=== PATIENT | male | born 1960 | race Caucasian/White ===

== ENCOUNTER 2020-11-13 16:46 | Outpatient (CLI) | payer OTHER, SELFPAY ==
--- NOTE | ~2020-11-13 | XR_ITS ---
EXAMINATION: XR foot LT min 3V DATE: 11/13/2020 17:14 INDICATION: Left foot pain. TECHNIQUE: 4 views of left foot were obtained. COMPARISON: None. FINDINGS: There is moderate hallux valgus. No fracture. There is mild osteoarthritis of first metatar sophalangeal joint and some of the interphalangeal joints and midfoot joints. There are enthesophytes at the posterior and plantar aspects of calcaneal tuberosity. IMPRESSION: 1. Moderate hallux valgus. 2. Polyarticular osteoarthritis. Reviewed, dictated and finalized at location A.
== END 2020-11-13 16:47 | disposition home or self-care (01) ==
PROVIDERS: PCP Internal Medicine; Visit Provider Nurse Practitioner Family
DX: M79.672 Pain in left foot (principal)
CPT/HCPCS: 73630

== ENCOUNTER 2020-12-13 14:50 | Outpatient (CLI) | payer OTHER, SELFPAY ==
[2020-12-13 15:22] LABS: SARS-CoV-2 Ag Negative (Negative)
[2020-12-13 15:52] LABS: SARS-CoV-2 RNA PCR Negative (Negative)
== END 2020-12-13 14:51 | disposition home or self-care (01) ==
LOC: CHSLAB 14:52
PROVIDERS: PCP Internal Medicine; Visit Provider Internal Medicine
DX: J06.9 Acute upper respiratory infection, unspecified (principal); Z20.822 Contact with and (suspected) exposure to COVID-19
CPT/HCPCS: 87426; C9803; U0003; U0005

== ENCOUNTER 2021-03-18 07:53 | Outpatient (CLI) | payer OTHER, SELFPAY ==
--- NOTE | ~2021-03-18 | XR_ITS ---
EXAMINATION: XR foot LT min 3V DATE: 03/18/2021 08:25 INDICATION: Left foot and second toe pain TECHNIQUE: Dorsoplantar, lateral, and 2 oblique views of the left foot were obtained. COMPARISON: 11/13/2020 FINDINGS: Moderate hallux valgus is again noted and unchanged. No fracture is identified. There is mi ld osteoarthritis at the first metatarsophalangeal joint. Mild osteoarthritis is also noted in the mi dfoot. There are posterior and plantar calcaneal enthesophytes. IMPRESSION: 1. No acute osseous abnormality. Reviewed, dictated and finalized at location A.
== END 2021-03-18 07:54 | disposition home or self-care (01) ==
LOC: CHSLAB 07:54
PROVIDERS: PCP Internal Medicine; Visit Provider Orthopaedic Surgery
DX: M79.672 Pain in left foot (principal)
CPT/HCPCS: 73630

== ENCOUNTER 2021-05-20 07:47 | Outpatient (CLI) | payer OTHER, SELFPAY ==
--- NOTE | 2021-05-20 08:00 | ECG_ITS ---
Measurements Intervals [place] Rate: 65 P: 62 NE: 164 QRS: 84 QRSD: 101 T: 38 QT: 385 QTc: 401 Interpretive Statements SINUS RHYTHM BASELINE ARTIFACT- I, II, AVR, AVL, AVF NORMAL ECG Electronically Signed On 05-20-2021 16:47:18 CLOTH MEASURER by Chase Davis D.O.
== END 2021-05-20 07:48 | disposition home or self-care (01) ==
LOC: ANHSURGERY 07:49
PROVIDERS: PCP Internal Medicine; Visit Provider Orthopaedic Surgery
DX: E78.5 Hyperlipidemia, unspecified (principal); Z01.818 Encounter for other preprocedural examination
CPT/HCPCS: 93005

== ENCOUNTER 2021-05-23 00:41 | Day surgery (SDC) | payer OTHER, SELFPAY ==
[2021-05-14 14:30] VITALS: BMI 32.3
--- NOTE | 2021-05-14 14:37 | PC.NURSE ---
Report to the Outpatient Waiting Room, entrance under the green pavilion located off [facility], at time __0700_ on date 05-23-21. OR Time: _0900__. - You and your visitor will be asked a series of questions to screen for COVID 19 for your protection. - A mask is required within the hospital. - Only one visitor is allowed at this time. Patient visitors will be guided where to wait when not with patient. Preoperative COVID Testing Requirements: No COVID Test needed if: (proof is required; if not received patient will have Rapid Test prior to entry) - Patient has received COVID Vaccine at least 14 days prior to procedure date or - Patient has positive COVID test result within last 90 days of surgery date. COVID Test needed if above criteria is not met If not COVID vaccinated a COVID test must be conducted within 72 hours of surgery and patient is asked to isolate self from time of testing until procedure. You will go to the [facility] for your COVID testing. The [facility] site is located at the corner of [address] [facility]. You will only be called if COVID results are positive and your surgeon may reschedule your elective surgery date. Patients may have clear liquids (water, carbonated beverages, clear teas, apple juice) until 3 hours prior to surgery with a maximum of 20 ounces. - No food from midnight until time of surgery - Infants may have breast milk until 4 hours before surgery, formula 6 hours prior to surgery. - Children will be allowed to drink immediately following surgery. If applicable, please bring a bottle or sippy cup to assist with drinking. Juice, water, soda, and popsicles are readily available. For infants on formula, please bring formula the day of surgery. Pacifiers are allowed. Take the following medications with a SIP of water the morning of surgery: Medications to discontinue per physician Date to take last dose Please no make-up, nail gambian, hairspray, perfume, deodorant, or body powder the day of surgery. No jewelry (including any body piercings) or valuables the day of surgery, leave them at home. Please take a shower or bath the night before, or the morning of, surgery with an antibacterial soap. Wear comfortable, loose fitting clothing. Children are encouraged to wear pajamas. - Jewelry must be removed prior to entering the operating room. Rings and piercings that are not removed may be cut off. - The hospital will not accept responsibility for valuables. - Please leave all valuables, including medications, at home the day of surgery. If you are going home after surgery, a licensed motor bus driver must drive you home. - NO public transportation without another adult. - We recommend that an adult stay with you for 24 hours following discharge. - We also recommend that you do not drive, make important decision, drink alcoholic beverages, or take any drugs that were not prescribed by your health care provider for at least 24 hours after your discharge time. For Pediatric surgeries, we recommend two adults accompany the child home (only one inside the building at this time). Follow any additional instructions given to you from your surgeon. Telephone instructions given to ___Patient and asked if any additional questions and then verbalized understanding. Patient advised to call surgeon office or pre surgery nurse liaison [phone] if any additional questions.
--- NOTE | 2021-05-14 15:20 | PM.IMHP ---
H&P: HPI History of Present Illness Date/Time: 05/14/21 15:20 Chief Complaint: Left foot pain and 2nd toe deformity Narrative: Pt states that he started to get pain on the MTP joints of his toes about 1 year ago when he was walking. He states that approx 4 months ago his 2nd toe started to flex into a contracture and cause achiness. He stated that he can extend the toe back out with his hand, but it causes extreme pain. He has achiness when walking and feels like the contracture is getting worse. He went to his PCP on 12/13/20 and was prescribed a prednisone dose pack. Pt stated it did not help with pain or contracture. XR on 11/13/20 showed moderate hallux valgus/polyarticular arthritis. Pt states that he uses ice for pain with very little relief. Onset: 03/18/20 Location: MTP joints 1-5, 2nd toe Duration: 1 years for MTP pain, 4 months for 2nd toe pain Review of Systems Constitutional: Constitutional: Denies fever(s) Eyes: Eyes: Denies blurry vision ENT: Reports Normal hearing present Cardiovascular: Cardiovascular: Denies chest pain and Denies dyspnea Respiratory: Respiratory: Denies dyspnea and Denies wheezing Gastrointestinal: Gastrointestinal: Denies abdominal pain Genitourinary: Genitourinary: Denies urinary urgency Musculoskeletal: Musculoskeletal: Reports as per HPI and Denies numbness Integumentary/Breasts: Skin/Breast: Denies changing lesions and Denies sores Neurologic: Reports Normal hearing present, Denies behavioral changes, Denies confusion, Denies numbness and Denies convulsions Psychiatric: Psychiatric: Denies behavioral changes, Denies confusion and Denies hallucinations Endocrine: Endocrine: Denies heat intolerance Hematologic/Lymphatic: Hematologic/Lymphatic: Denies easy bleeding Allergic/Immunologic: Allergic/Immunologic: Denies wheezing PMFSH Past Medical History Medical History Crossover toe deformity of left foot Social History Social History Smoking packs per day: 1 Smoking cigarettes per day: 20.0 Years smoked: 25 Smoking pack-years: 25.00 Smoking status: Former smoker Tobacco type: cigarettes Smoking end date: 05/14/02 Alcohol intake: current Spiritual care concerns: No Meds Home Medications and Allergies Home Medications Medication Instructions Recorded Confirmed Type rosuvastatin 5 mg PO DAILY 05/14/21 05/14/21 History Allergies Allergy/AdvReac Type Severity Reaction Status Date / Time No Known Allergies Allergy Verified 05/14/21 14:29 Exam Const: General: No confusion Orientation/consciousness: No confusion HENMT: Head: normal to inspection, normocephalic and atraumatic Eyes: Conjunctivae: conjunctivae normal Sclera: sclerae normal Neck: Neck: supple and nontender Chest: Chest palpation & inspection: normal inspection of the chest Resp: Effort & Inspection: normal respiratory effort and no audible wheezes Cardio: Rate: regular rate Rhythm: regular rhythm : General: Yes deferred Skin: General skin exam: no rashes or lesions noted Neuro: General: No confusion Extrem: General: capillary refill normal Right upper extremity: normal to inspection Left upper extremity: normal to inspection Right lower extremity: normal to inspection, hip/thigh Details: normal to inspection and foot Details: vascular exam Details: dorsalis pedis pulse present and normal capillary refill and motor-sensory exam Details: light-touch normal; no tenderness Left lower extremity: hip/thigh Details: normal to inspection, knee Details: abnormal ROM ( range of motion deferred secondary to fracture), ankle (no calf tenderness) Details: normal to inspection, normal ROM, ecchymosis, crepitus, achilles tendon exam abnormal and other ( good capillary refill in toes, 2+ DP pulse, light touch sensation intact); no tenderness ( lateral malleolus, anterior
[2021-05-23] VITALS (10 sets, daily range): BP systolic 104–123; BP diastolic 56–72; PULSE 59–79; RESP 15–17; TEMP 36.2–37.6; O2SAT 93–100
--- NOTE | ~2021-05-23 | XR_ITS ---
EXAMINATION: XR surgery orthopedic DATE: 05/23/2021 10:55 INDICATION: Left crossover toe repair and osteotomy TECHNIQUE: 3 fluoroscopic images of the left forefoot were obtained during procedure performed by Dr. Burnham. Radiologist was not present for the imaging or procedure. The amount of fluoroscopy time us ed during this procedure was 0.2 minutes. COMPARISON: 03/18/2021 FINDINGS: Osteotomy at the head of the second proximal phalanx and second proximal interphalangeal arthrodesis. There is a fixation device spanning the joint space which has been placed over an axially directed w alicia which extends from the tuft of the distal phalanx across the middle phalanx and into the diaphysi s of the proximal phalanx. Tiny drill hole at the base of the proximal phalanx. Shortening osteotomy with screw fixation at the neck of the second metatarsal. No fracture. 20 degrees hallux valgus. Mild osteoarthritis at the first metatarsophalangeal joint. IMPRESSION: 1. Postoperative change at the second ray including shortening osteotomy at the neck of the second me tatarsal and internally fixed second proximal interphalangeal joint arthrodesis as detailed above. Se e procedure note for further detail. Reviewed, dictated and finalized at location A. EDIENT HANDLER IMPRESSION: 1. Postoperative change at the second ray including shortening osteotomy at the neck of the second metatarsal and internally fixed second proximal interphalan geal joint arthrodesis as detailed above. See procedure note for further detail .
--- NOTE | 2021-05-23 06:10 | WPDHPUPDATE1 ---
History and Physical Update Update Date/Time: 05/23/21 06:10 History and Physical has been reviewed, including an updated exam of the patient. There are NO changes in the patient's condition. Risks, benefits, and alternatives have been discussed and questions answered. Patient agrees to proceed with procedure.
[2021-05-23] MEDS: ACETAMINOPHEN 500 MG TABLET 1000 MG PO (08:00)
--- NOTE | 2021-05-23 08:10 | P.PNAN_ITS ---
Anes - Initial Pre Proc Eval Procedure: Operation Date: 05/23/21 09:00 Proposed Procedures p Left Second Crossover Toe Repair and Second Metatarsal Osteotomy - Jim Burnham MD Date/Time: 05/23/21 08:10 Surgeon: Jim Burnham MD Pre Op Diagnosis: left second crossover toe Patient Data Age: 60 Gender: M Height: 1.78 m Weight: 102.3 kg Allergies Allergy/AdvReac Type Severity Reaction Status Date / Time No Known Allergies Allergy Verified 05/23/21 07:43 Home Medications Medication Instructions Recorded Confirmed Type rosuvastatin 5 mg PO DAILY 05/14/21 05/23/21 History Patient hx anesthesia problems: none Family hx anesthesia problems: none Results Review: All pre-operative results and documents have been reviewed as part of the pre-operative evaluation. [facility] Past Medical History Medical History (Updated 05/23/21 @ 08:10 by Abad Mckenna MD) Crossover toe deformity of left foot Hyperlipidemia Obesity LILI (obstructive sleep apnea) Surgical History Surgical History (Updated 05/23/21 @ 08:10 by Abad Mckenna MD) H/O colonoscopy Social History Social History Smoking packs per day: 1 Smoking cigarettes per day: 20.0 Years smoked: 25 Smoking pack-years: 25.00 Smoking status: Former smoker Tobacco type: cigarettes Smoking end date: 05/14/02 Alcohol intake: current Living arrangements: with family Spiritual care concerns: No Anes - Eval Final PreProcedure Day of Procedure 05/23/21 08:10 Patient weight: obese Heart: regular rate and rhythm Lungs: clear to auscultation Airway: Mallampati scale class II Neurological: alert and oriented Last oral intake: >/= 8 hours ASA classification: III Emergent: no Anesthetic plan: proceed Anesthesia type and monitoring: general LMA and standard monitoring Results Review: All pre-operative results and documents have been reviewed as part of the pre-operative evaluation. Informed Consent: The patient's anesthetic plan and its attendant risks and benefits were discussed with the patient/family/POA. Questions were solicited and answers provided to the satisfaction of the patient/family/POA.
[2021-05-23] MEDS: LACTATED RINGERS 1,000 ML 30 ML IV CONT ×2 (08:50→11:10)
[2021-05-23] MEDS: KETOROLAC 15 MG/ML VIAL (*BKC) IV PUSH (08:52)
[2021-05-23] MEDS: ceFAZolin 2 GM/D5W 50 ML 2 GM/50 ML BAG IVPB (08:56)
[2021-05-23] MEDS: BUPIVACAINE HCL 0.5% PF 30 ML VIAL 20 ML INFILTRATE (09:08)
--- NOTE | 2021-05-23 10:22 | SUR.OPER ---
IMPLANT SYSTEM CPR MINI SCORPION DX AND MICRO SUTURE LASSO, LOT [id number], EXP 2025-02-21 LEFT FOOT 2ND TOE
--- NOTE | 2021-05-23 10:33 | SUR.OPER ---
LocalEats[employer]ITE PIP IMPLANT BENT 16MM WITH INSTRUMENTATION, LOT [id number], EXP 2024-03-24. LEFT FOOT 2ND TOE.
--- NOTE | 2021-05-23 11:33 | W.PM.PROC2 ---
Procedure Note - Detailed Date of Procedure 05/23/21 Pre-op Diagnosis left second crossover toe, hammertoe, metatarsalgia Post-op Diagnosis same Procedure Performed Left 2nd metatarsal osteotomy with shortening, crossover toe soft tissue reconstruction, hammertoe repair with proximal interphalangeal arthrodesis Surgeon Jim Burnham MD Flow Specialist 1st executive chef assistant Anesthesia general Indications 60-year-old gentleman with left crossover toe deformity, 2nd hammertoe deformity and metatarsalgia due to excessively long 2nd metatarsal. Failed non operative treatment with stretching, shoe inserts and padding, accommodative shoes and medication. Presents now for operative treatment. Description of Procedure After informed consent was given the operative extremity was marked in the preoperative holding area. Patient received intravenous antibiotics. he was brought to the operating room where he underwent a general anesthetic by the anesthesia team. Time-out performed confirming the patient, site of the surgery, operative plan. The left lower extremity was then prepped and draped in usual sterile surgical fashion using ChloraPrep skin solution. Foot and ankle exsanguinated and a calf tourniquet inflated to 225 mmHg. Dorsal approach utilized and longitudinal incision made with 15 blade knife centered over the 2nd metatarsophalangeal joint. Hemostasis controlled with electrocautery. Extensor tendon retracted laterally. Dorsal capsulotomy performed. Synovitis and joint fluid noted in the joint. This was sharply removed and suctioned out. Collaterals released off of the proximal phalanx. Joint inspected and a plantar plate rupture noted. Proximal plantar plate released with the McGlamry elevator. Plantar condyle removed with a rongeur. Sagittal saw used to make transverse osteotomy in the metatarsal head. This allowed the head to shorten to correct the excessive length of the metatarsal. Positioning verified with image intensification. Fixation achieved with a 2.0 mm twist off screw from Arthrex set. Plantar plate reconstruction then performed. Suture passed in horizontal mattress fashion through the plantar plate. Drill holes placed in the proximal phalanx and suture brought up through the drill holes. With the toe in corrected position sutures tied over the dorsum of the proximal phalanx. Image intensification confirmed final alignment of the toe at the metatarsophalangeal joint. Visualization clinically showed good alignment of the metatarsophalangeal joint. Hammertoe then addressed. Dorsal longitudinal incision made with a 15 blade knife over the proximal interphalangeal joint of the 2nd toe. Collateral ligaments released after a dorsal capsulotomy. Distal end of the proximal phalanx removed with a bone cutter and the proximal end of the middle phalanx removed with a rongeur. Reaming for the implant was then performed. The implant was then placed into the middle phalanx and reduced to the proximal phalanx and impacted. Image intensification confirmed alignment and placement of the hardware. Wounds thoroughly irrigated with antibiotic solution. Capsules repaired with 3 0 Monocryl interrupted suture. Skin repaired with 4 0 nylon interrupted suture. Sterile dressing applied. Tourniquet released. Good capillary refill noted in the toe. Patient awoke from anesthesia, extubated and taken to the recovery room in stable condition. All sponge, needle, instrument counts correct at the end of the case. Implants Arthrex 16 mm hammertoe implant, 13 mm x 2.4 mm twist off screw, 0.054 in K-wire x1 Estimated Blood Loss 2 Tourniquet Time 115 Drains No Packing No Pathology none sent Complications None Condition stable Disposition PACU
== END 2021-05-23 13:10 | disposition home or self-care (01) ==
PROVIDERS: PCP Internal Medicine; Visit Provider Orthopaedic Surgery
PROC: (CPT 28313; principal; 2021-05-23 09:00)
DX: M20.42 Other hammer toe(s) (acquired), left foot (principal); M77.42 Metatarsalgia, left foot; M20.5X2 Other deformities of toe(s) (acquired), left foot; E78.5 Hyperlipidemia, unspecified; G47.33 Obstructive sleep apnea (adult) (pediatric); Z87.891 Personal history of nicotine dependence; E66.9 Obesity, unspecified; Z68.32 Body mass index [BMI] 32.0-32.9, adult
CPT/HCPCS: 28313; 26860; 28308; A9270; C1713; J0690; J1885; J2250; J2405; J2704; J3010; J7120

== ENCOUNTER 2021-05-27 08:37 | Outpatient (CLI) | payer OTHER, SELFPAY ==
--- NOTE | ~2021-05-27 | XR_ITS ---
EXAMINATION: XR foot LT min 3V DATE: 05/27/2021 08:54 INDICATION: Left foot pain TECHNIQUE: Dorsoplantar, two oblique and lateral views of the left foot were obtained. COMPARISON: 03/18/2021 FINDINGS: Postoperative change of a shortening osteotomy with screw fixation at the head of the second metatars al. Osteotomy at the head of the second proximal phalanx and percutaneous fixation wires extending fr om the tuft of the distal phalanx across the middle phalanx into the distal diaphysis of the proximal phalanx. There is an additional fixation device 4 likely arthrodesis at the proximal interphalangeal joint which has been placed coaxially over the fixation wire. Small lucent likely drill hole at the base of the second proximal phalanx. Alignment is essentially anatomic. No fractures identified. Mild osteoarthritis at the first metatarsophalangeal and a few tarsometatarsal and interphalangeal joints . Soft tissue unremarkable with no evident soft tissue gas. IMPRESSION: 1. Postoperative changes along the second ray as detailed above. No acute osseous abnormality. Reviewed, dictated and finalized at location B. RUMENT TECHNICIAN IMPRESSION: 1. Postoperative changes along the second ray as detailed above. No acute osseo us abnormality.
== END 2021-05-27 08:38 | disposition home or self-care (01) ==
LOC: CHSIMG 08:39
PROVIDERS: PCP Internal Medicine; Visit Provider Orthopaedic Surgery
DX: M79.672 Pain in left foot (principal)
CPT/HCPCS: 73630

== ENCOUNTER 2021-06-24 08:18 | Outpatient (CLI) | payer OTHER, SELFPAY ==
--- NOTE | ~2021-06-24 | XR_ITS ---
EXAMINATION: XR foot LT min 3V DATE: 06/24/2021 08:42 INDICATION: One month postoperative evaluation following surgery on the left second toe. TECHNIQUE: Dorsoplantar, two oblique and lateral views of the left foot were obtained. COMPARISON: 05/27/2021 FINDINGS: Mild hallux valgus. Again seen are postoperative changes of likely shortening osteotomy with screw fi xation at the head and neck of the left second metatarsal. Fusion device and a second proximal interp halangeal joint attempted arthrodesis. No definitive solid osseous bridging yet apparent. There is no lucency surrounding the screw fixation device to suggest loosening or infection. Again seen is a sma ll lucency, likely duodenal at the base of the second proximal phalanx. No fracture. Mild polyarticul ar osteoarthritis at the left ankle and multiple joints in the mid and forefoot. Moderate-sized plant ar calcaneal spur. Soft tissues are unremarkable. IMPRESSION: 1. Expected postoperative changes of a recent internally fixating osteotomy at the head/neck of the s econd metatarsal and of an internally fixed second proximal interphalangeal joint arthrodesis. Reviewed, dictated and finalized at location A. LLECTUAL PROPERTY MANAGER IMPRESSION: 1. Expected postoperative changes of a recent internally fixating osteotomy at the head/neck of the second metatarsal and of an internally fixed second proxim al interphalangeal joint arthrodesis.
== END 2021-06-24 08:19 | disposition home or self-care (01) ==
LOC: CHSLAB 08:19
PROVIDERS: PCP Internal Medicine; Visit Provider Orthopaedic Surgery
DX: M79.672 Pain in left foot (principal)
CPT/HCPCS: 73630

== ENCOUNTER 2024-09-06 01:26 | Day surgery (SDC) | payer OTHER, SELFPAY ==
[2024-08-29 12:58] VITALS: BMI 31.6
--- OUTSIDE RECORDS SUMMARY | 2024-09-06 01:29 | XMS_ITS | Clinical Summary ---
Author Organization [facility] Address [address] [place] [id number] Care Team Providers Care Medical Billing Associate Name Role Phone Unavailable Primary Care Provider Unavailabl e Social History Tobacco Use Types Packs/Day Years Used Date Smoking Tobacco: Never Assessed Sex and Gender Information Value Date Recorded Sex Assigned at Not on file Legal Sex Male 7:59 AM CDT Gender Identity Not on file Sexual Orientation Not on file Last Filed Vital Signs Vital Sign Reading Time Taken Comments Blood Pressure 110/70 09/01/2015 11:29 AM CDT Pulse 72 09/01/2015 11:29 AM CDT Temperature - - Respiratory Rate - - Oxygen Saturation - - Inhaled Oxygen Concentration - - Weight 95.3 kg (210 lb) 01/06/2013 3:35 PM CDT Height - - Body Mass Index - - Plan of Treatment Health Maintenance Due Date Last Done Comments Colorectal Cancer Screening Colonoscopy (10 Years) 1962 Annual Physical 1965 Hepatitis C 1980 Zoster Vaccines (1 of 2) 2012 COVID-19 Vaccine ( - 2023-2 5 season) 2024 DTaP, Tdap and Td Vaccines ( 2 - Td or Tdap) 08/17/2025 08/18/2015 RSV Immunization or 60+ Years (1 - 1-dose 75+ series) 2037 Meningococcal B Vaccine Aged Out No l onger eligible based on patient's age to complete this topic Meningococcal Vaccine Aged Out No tim kristy eligible based on patient's age to complete this topic Pneumococcal Vaccine: Pediat rics (0 to 5 Years) and At-Risk Patients (6 to 49 Years) Aged Out No longer eligi ble based on patient's age to complete this topic RSV Immunizations Under 20 Months Aged Out No longer eligible based on patient's age to complete this topic
--- NOTE | 2024-09-06 07:07 | P.PNAN_ITS ---
Anes - Initial Pre Proc Eval Procedure: Operation Date: 09/06/24 08:15 Proposed Procedures p Screening Colonoscopy - Kobi Medina DO Date/Time: 09/06/24 07:07 Surgeon: Kobi Medina DO Pre Op Diagnosis: Screening for malignant neoplasm of colon Patient Data Age: 63 Gender: M Height: 1.78 m Weight: 100 kg Allergies Allergy/AdvReac Type Severity Reaction Status Date / Time No Known Allergies Allergy Verified 08/29/24 12:56 Home Medications ?Medication ?Instructions ?Recorded ?Confirmed ?Type ibuprofen 800 mg tablet 800 mg PO TID PRN pain #30 tabs 05/23/21 08/29/24 Rx fenofibrate 54 mg tablet 54 mg PO DAILY 08/29/24 08/29/24 History losartan 50 mg tablet 50 mg PO DAILY 08/29/24 08/29/24 History metformin 500 mg tablet,extended 1,000 mg PO DAILY 08/29/24 08/29/24 History release 24 hr Patient hx anesthesia problems: none Family hx anesthesia problems: none Results Review: All pre-operative results and documents have been reviewed as part of the pre- operative evaluation. [facility] Past Medical History Medical History Encounter for postoperative care Hyperlipidemia LILI (obstructive sleep apnea) Obesity Crossover toe deformity of left foot Surgical History Surgical History H/O colonoscopy Social History Social History Smoking packs per day: 1 Smoking cigarettes per day: 20.0 Years smoked: 25 Smoking pack-years: 25.00 Smoking status: Former smoker Tobacco type: cigarettes Smoking end date: 05/14/02 Alcohol intake: current Substance use type: does not use Living arrangements: with family Spiritual care concerns: No Anes - Eval Final PreProcedure Day of Procedure 09/06/24 07:07 Patient weight: obese Heart: regular rate and rhythm Lungs: clear to auscultation Airway: Mallampati scale class II Neurological: alert and oriented Last oral intake: >/= 8 hours ASA classification: III Emergent: no Anesthetic plan: proceed Anesthesia type and monitoring: general GIVS and standard monitoring Results Review: All pre-operative results and documents have been reviewed as part of the pre- operative evaluation. Informed Consent: The patient's anesthetic plan and its attendant risks and benefits were discussed with the patient/family/POA. Questions were solicited and answers provided to the satisfaction of the patient/family/POA.
[2024-09-06 07:14] VITALS: BP 125/71; PULSE 57; RESP 18; TEMP 36.3; O2SAT 100
[2024-09-06] MEDS: LACTATED RINGERS 1,000 ML 150 ML IV CONT (07:25)
[2024-09-06 07:58] LABS: Glucose Point of Care 130 mg/dl (65-105)
--- NOTE | 2024-09-06 08:10 | PM.IMHP ---
H&P: HPI History of Present Illness Date/Time: 09/06/24 08:10 Chief Complaint: screening for colorectal cancer Narrative: this is a 63-year-old man who presents for colonoscopy. His last colonoscopy was 10 years ago and was normal. He denies any hematochezia or melena. He denies family history of colon cancer. Review of Systems Review of Systems: All systems reviewed & are unremarkable except as noted in HPI and below Constitutional: Constitutional: Denies chills, Denies fever(s), Denies headache(s) and Denies weight loss Eyes: Eyes: Denies change in vision ENT: Denies dizziness, Denies headache(s), Denies neck mass and Denies throat swelling Cardiovascular: Cardiovascular: Denies chest pain, Denies lightheadedness and Denies dyspnea Respiratory: Respiratory: Denies cough, Denies dyspnea and Denies wheezing Gastrointestinal: Gastrointestinal: Denies abdominal pain, Denies change in bowel habits, Denies nausea and Denies vomiting Genitourinary: Genitourinary: Denies hematuria and Denies dysuria Musculoskeletal: Musculoskeletal: Reports as per HPI Integumentary/Breasts: Skin/Breast: Reports as per HPI Neurologic: Denies dizziness and Denies headache(s) Allergic/Immunologic: Allergic/Immunologic: Denies throat swelling and Denies wheezing PMFSH Past Medical History Medical History Encounter for postoperative care Hyperlipidemia LILI (obstructive sleep apnea) Obesity Crossover toe deformity of left foot Surgical History Surgical History H/O colonoscopy Social History Social History Smoking packs per day: 1 Smoking cigarettes per day: 20.0 Years smoked: 25 Smoking pack-years: 25.00 Smoking status: Former smoker Tobacco type: cigarettes Smoking end date: 05/14/02 Alcohol intake: current Substance use type: does not use Living arrangements: with family Spiritual care concerns: No Meds Home Medications and Allergies Home Medications ?Medication ?Instructions ?Recorded ?Confirmed ?Type ibuprofen 800 mg tablet 800 mg PO TID PRN pain #30 tabs 05/23/21 08/29/24 Rx fenofibrate 54 mg tablet 54 mg PO DAILY 08/29/24 09/06/24 History losartan 50 mg tablet 50 mg PO DAILY 08/29/24 09/06/24 History metformin 500 mg tablet,extended 1,000 mg PO DAILY 08/29/24 09/06/24 History release 24 hr Allergies Allergy/AdvReac Type Severity Reaction Status Date / Time No Known Allergies Allergy Verified 09/06/24 07:13 Vital Signs Vital Signs - 24 hr 09/06/24 07:14 Temperature 97.3 F L Pulse Rate 57 L Respiratory Rate 18 Blood Pressure 125/71 Pulse Oximetry 100 Oxygen Delivery Room Air Exam Const: General: no acute distress and alert Orientation/consciousness: patient oriented x3 HENMT: Head: normocephalic and atraumatic Ears: hearing grossly normal bilaterally Face/Nose/Sinus: Normal nares present Mouth: Yes Normal oral and palatal mucosa present Eyes: Periorbital: periorbital findings normal Sclera: sclerae normal EOM: EOMs intact bilaterally Neck: Neck: normal visual inspection, no lymphadenopathy and trachea midline Chest: Chest palpation & inspection: normal inspection of the chest Resp: Effort & Inspection: normal respiratory effort Auscultation: clear to auscultation bilaterally Cardio: Jugular venous distension: no JVD Rate: regular rate Rhythm: regular rhythm Heart sounds: S1 normal heart sound present and S2 normal heart sound present Peripheral pulses: Peripheral pulses 2+ throughout GI: Inspection: normal to inspection GI Palp: Yes Soft to palpation, No Tenderness to palpation present (GI), No Guarding due to palpation present (GI) and No Rebound tenderness present Percussion: Yes normal to percussion Auscultation: normal bowel sounds : General: Yes no CVA tenderness Back/Spine/Pelvis: Back: no CVA tenderness Neuro: General: patient oriented x3, no focal motor deficits and CN's II-XI intact bilaterally Cognition (Neuro): normal cognition Speech: normal speech Motor exam (neuro): 5/5 motor strength present throughout Extrem: General: capillary refill normal and no clubbing, cyanosis or edema Assessment and Plan Assessment and plan (1) Screening for colorectal cancer: Code(s): Z12.11 - Encounter for screening for malignant neoplasm of colon; Z12.12 - Encounter for screening for malignant neoplasm of rectum Status: Acute Assessment and Plan: I have recommended colonoscopy. I have discussed the procedure, risks, benefits, and alternatives. Questions were answered. Patient is agreeable to proceed.
[2024-09-06 08:28] VITALS: BP 98/64; PULSE 55; RESP 18; O2SAT 97
[2024-09-06 08:38] VITALS: BP 112/75; PULSE 63; RESP 20; O2SAT 99
[2024-09-06 08:48] VITALS: BP 118/78; PULSE 59; RESP 20; O2SAT 98
== END 2024-09-06 08:54 | disposition home or self-care (01) ==
PROVIDERS: PCP Internal Medicine; Visit Provider Surgery
PROC: 0DJD8ZZ Inspection of Lower Intestinal Tract, Via Natural or Artificial Opening Endoscopic (ICD-10-PCS; CPT 45378; principal; 2024-09-06 08:15)
DX: Z12.11 Encounter for screening for malignant neoplasm of colon (principal); K57.30 Diverticulosis of large intestine without perforation or abscess without bleeding; E78.5 Hyperlipidemia, unspecified; G47.33 Obstructive sleep apnea (adult) (pediatric); M20.5X2 Other deformities of toe(s) (acquired), left foot; E66.9 Obesity, unspecified; Z68.30 Body mass index [BMI] 30.0-30.9, adult; Z79.1 Long term (current) use of non-steroidal anti-inflammatories (NSAID); Z79.84 Long term (current) use of oral hypoglycemic drugs; Z87.891 Personal history of nicotine dependence
CPT/HCPCS: 45378; 82948; J2704; J7120